=== PATIENT | male | born 1955 | race Caucasian/White ===

== ENCOUNTER 2016-10-25 10:49 | Emergency (ER) | payer OTHER ==
--- NOTE | 2016-10-25 11:28 | RAD ---
LEFT FOOT: HISTORY: Injury to fourth digit, left foot. FINDINGS: Three views obtained. There is dislocation of the PIP joint of the fourth toe. There appears to be a fracture involving t he tuft of the distal phalanx of the fifth toe. The middle phalanx and distal phalanx of the fourth toe are not adequately evaluated on this exam due to poor positioning. The bones of the foot other judd appear intact. Consider dedicated views of the fourth and fifth digits. IMPRESSION: 1. Soft tissue injury of the fourth digit is apparent. There is dislocation of the proximal interp halangeal joint of the fourth digit. Middle phalanx and distal phalanx of fourth digit not adequate ly evaluated. 2. Evidence of fracture of the tuft of the distal phalanx of the fifth digit. Recommend dedicated images of the fourth and fifth digits. POS: [facility]
[2016-10-25 11:35] LABS: #Basophils 0.2 thou/uL (0.0-0.2); #Eosinphils 0.2 thou/uL (0.0-0.7); #Lymphocytes 3.7 thou/uL (1.20-3.40); #Monocytes 1.1 thou/uL (0.11-0.59); #Neutrophils 3.3 thou/uL (1.40-6.50); %Basophils 2.6 % (0.0-1.0); %Eosinophils 2.7 % (0.0-10.0); %Lymphocytes 43.4 % (21.0-51.0); %Monocytes 13.1 % (0.0-10.0); %Neutrophils 38.3 % (42.0-75.0); Hemoglobin 15.4 g/dL (14.0-18.0); Mean Corpuscular HGB CONC 33.4 g/dL (32.0-36.0); Mean Corpuscular Hemoglobin 31.3 pg (27.0-31.0); Mean Corpuscular Volume 93.7 fl (80.0-94.0); Platelet Count 348 thou/uL (130-400); RBC Distribution Width 11.9 % (11.5-14.5); Red Blood Cell (RBC) Count 4.92 mill/uL (4.70-6.10); White Blood Cell (WBC) Count 8.5 thou/uL (4.8-10.8)
[2016-10-25 11:49] LABS: ALT (SGPT) 23 U/L (8-55); AST (SGOT) 20 U/L (5-34); Albumin 4.4 g/dL (3.5-5.0); Alkaline Phosphatase 43 U/L (40-150); Anion Gap 16 mmol/L (10-20); BUN (Urea Nitrogen) 27 mg/dL (8.4-25.7); Bilirubin, Total 0.5 mg/dL (0.2-1.2); Calc. Creatinine Clearance 0 mL/min (70-130); Carbon Dioxide 25 mmol/L (22-29); Chloride 104 mmol/L (98-107); Estimated GFR-MDRD 60; Globulin 3.4 g/dL (2.4-3.5); Glucose 124 mg/dL (70-105); Potassium 4.4 mmol/L (3.5-5.1); Protein, Total 7.8 g/dL (6.0-8.3); Sodium 141 mmol/L (136-145)
[2016-10-25] MEDS ORDERED: ceFAZolin Sodium 1 GM VIAL ONE (11:52)
[2016-10-25] MEDS ORDERED: Sodium Chloride 0.9% 100 ML ONE (11:52)
[2016-10-25] MEDS ORDERED: Sodium Chloride 0.9% 0 ML ONE (11:52)
[2016-10-25] MEDS ORDERED: Adacel (T-DAP) 0.5 ML VIAL ONE (11:55)
== END 2016-10-25 12:40 | disposition short-term general hospital (02) ==
LOC: NAV ERS 10:49
DX: S93.115A Dislocation of interphalangeal joint of left lesser toe(s), initial encounter (principal); E78.5 Hyperlipidemia, unspecified; I10 Essential (primary) hypertension; Z79.899 Other long term (current) drug therapy; W55.29XA Other contact with cow, initial encounter
CPT/HCPCS: 80053; 85025; 90471; 90715; 96365; 96375; J0690; J2270; J7050